=== PATIENT | male | born 1965 | race Two or more races ===

== ENCOUNTER 2020-12-04 08:00 | Outpatient (CLI) | payer OTHER ==
[~2020-12-04 08:00] MED LIST: NORVIR100 M1 PO; VIREAD150 MG PO; [UNRECOGNIZED DRUG - OTHER] PO
== END 2020-12-04 08:30 | disposition home or self-care (01) ==
LOC: PPH VACUNA 08:00
DX: Z23 Encounter for immunization (principal)

== ENCOUNTER → 2021-08-24 10:00 | Outpatient (CLI) | payer OTHER | END | disposition home or self-care (01) | LOC: PPH VACUNA 10:00 | PROVIDERS: ATTEND Emergency Medicine Pediatric Emergency Medicine | DX: Z23 Encounter for immunization (principal) ==